=== PATIENT | female | born 1990 | race Hispanic/Latino ===

== ENCOUNTER 2020-04-26 13:46 | Emergency (ER) | payer OTHER, SELFPAY ==
--- OUTSIDE RECORDS SUMMARY | 2020-04-26 13:48 | XMS REPORT | Continuity of Care Document ---
:1990 Author Organization [facility] t Address [address] [place] [address] Care Team Providers Name Role Phone Abel Jimenez Attending Clinician Payers Payer Name Policy Type Policy Number Effective Date Expiration Date S ource Problems This patient has no known problems. Allergies, Adverse Reactions, Alerts Allergy Allergy Status Severity Reaction(s) Onset Inactive Treating Comm ents Source Name Type Date Date Clinician No Known DA Active [facility] Allergie 05-23 Clear s 00:00: Barrios 00 [facility] Medications This patient has no known medications. Procedures This patient has no known procedures. Encounters Start End Encounter Admission Attending Care Care Encounter Source Date/Time Date/Time Type Type Clinicians Facility Department ID 2019-06-07 2019-06-07 Telephone Debra WAGLO [id number] 00:00:00 00:00:00 Blanca Roman MANGLE OPERATOR GARMENTS [id number] [facility] [id number] MATERNAL [id number] & CHILD [address] [place] [address] Results Test Description Test Time Test Comments Results Result Comments Source COMPREHENSIVE METABOLIC PANEL 2018-05-23 16:25:00 Test Item Value Reference Range Interpretation Comme nts SODIUM (test code = NA) 138 mmol/L 134-147 N POTASSIUM (test code = K) 4.2 mmol/L 3.4-5.0 N CHLORIDE (test code = CL) 106 mmol/L 100-108 N CARBON DIOXIDE (test code = CO2) 27 mmol/L 21-32 N ANION GAP (test code = GAP) 5.0 GAP calc 4.0-15.0 N GLUCOSE (test code = GLU) 84 MG/DL 70-110 N BLOOD UREA NITROGEN (test code = BUN) 14 MG/DL 7-18 N GLOMERULAR FILTRATION RATE (test code = GFR) >=60 max estimate estG FR >60 CREATININE (test code = CREAT) 0.5 MG/DL 0.6-1.0 L TOTAL PROTEIN (test code = PROT) 7.6 G/DL 6.4-8.2 N ALBUMIN (test code = ALB) 3.9 G/DL 3.4-5.0 N GLOBULIN (test code = GLOB) 3.7 GM/dL ALBUMIN/GLOBULIN RATIO (test code = A/G) 1.1 RATIO 1.2-2.2 L CALCIUM (test code = CA) 8.1 MG/DL 8.5-10.1 L BILIRUBIN TOTAL (test code = BILT) 0.40 MG/DL 0.2-1.2 N SGOT/AST (test code = AST) 16 Unit/L 15-37 N SGPT/ALT (test code = ALT) 26 Unit/L 12-78 N ALKALINE PHOSPHATASE TOTAL (test code = ALKP) 106 Unit/L 45-117 N COMPREHENSIVE METABOLIC [id number] 16:18:00 Test Item Value Reference Range Interpretation Comments SODIUM (test code = NA) 138 mmol/L 134-147 N POTASSIUM (test code = K) 4.2 mmol/L 3.4-5.0 N CHLORIDE (test code = CL) 106 mmol/L 100-108 N CARBON DIOXIDE (test code = CO2) 27 mmol/L 21-32 N ANION GAP (test code = GAP) 5.0 GAP calc 4.0-15.0 N GLUCOSE (test code = GLU) 84 MG/DL 70-110 N BLOOD UREA NITROGEN (test code = 14 MG/DL 7-18 N BUN) GLOMERULAR FILTRATION RATE (test estGFR >60 code = GFR) CREATININE (test code = CREAT) MG/DL 0.6-1.0 TOTAL PROTEIN (test code = PROT) G/DL 6.4-8.2 ALBUMIN (test code = ALB) G/DL 3.4-5.0 GLOBULIN (test code = GLOB) GM/dL ALBUMIN/GLOBULIN RATIO (test RATIO 1.2-2.2 code = A/G) CALCIUM (test code = CA) 8.1 MG/DL 8.5-10.1 L BILIRUBIN TOTAL (test code = MG/DL 0.2-1.2 BILT) SGOT/AST (test code = AST) Unit/L 15-37 SGPT/ALT (test code = ALT) Unit/L 12-78 ALKALINE PHOSPHATASE TOTAL (test Unit/L 45-117 code = ALKP) CBC W/AUTO [id number] 16:02:00 Test Item Value Reference Range Interpretation Comments WHITE BLOOD CELL (test code = 5.9 K/mm3 3.5-11.0 N WBC) RED BLOOD CELL (test code = RBC) 4.54 M/mm3 4.70-6.10 L HEMOGLOBIN (test code = HGB) 12.6 G/DL 10.4-14.9 N HEMATOCRIT (test code = HCT) 37.9 % 31.5-44.1 N MEAN CELL VOLUME (test code = 83.5 Fl 84.5-98.6 L MCV) MEAN CELL HGB (test code = MCH) 27.8 pg 27.0-34.2 N MEAN CELL HGB CONCETRATION (test 33.2 G/DL 31.5-34.0 N code = MCHC) RED CELL DISTRIBUTION WIDTH (test 13.9 SD 11.5-14.5 N code = RDW) PLATELET COUNT (test code = PLT) 197.0 K/mm3 150-450 N MEAN PLATELET VOLUME (test code = 9.90 fL 7.0-10.5 N MPV) NEUTROPHIL % (test code = NT%) 52.9 % 40-76 N LYMPHOCYTE % (test code = LY%) 33.6 % 20.5-51.1 N MONOCYTE % (test code = MO%) 7.3 % 1.7-9.3 N EOSINOPHIL % (test code = EO%) 5.9 % 0.0-6.0 N BASOPHIL % (test code = BA%) 0.3 % 0.0-2.0 N NEUTROPHIL # (test code = NT#) 3.11 K/mm3 1.8-7.6 N LYMPHOCYTE # (test code = LY#) 2.0 K/mm3 0.6-3.2 N MONOCYTE # (test code = MO#) 0.4 K/mm3 0.3-1.1 N EOSINOPHIL # (test code = EO#) 0.4 K/mm3 0.0-0.4 N BASOPHIL # (test code = BA#) 0.0 K/mm3 0.0-0.1 N MANUAL DIFF REQUIRED (test code = NO DIFF/SCN CRITERIA MDIFF) - XR CHEST 2 [id number] 13:50:00 Name: TOM CRESPO [facility] : 1990 Age/S: 28 / F [place] Unit #: [id number] Loc: [place] [address] Phys: Perico Watkins MD Acct: [id number] Dis Date: Status: PRE ER PHONE #: [phone] Exam Date: 05/23/2018 1340 FAX #: Reason: cough fever EXAMS: CPT: [id number] XR CHEST 2 V 05108 Fluoro Time: DAP (Gy m2): Air Kerma (mGy): Site ID: [id number] HISTORY: Cough, fever FINDINGS: Patchy right middle lobe pneumonia. Left lung is clear. The heart and pulmonary vasculature is normal. Osseous structures are unrem arkable. IMPRESSION: Patchy right middle lobe pneumonia at 1350 Reported andsigned by: Barbara Morocho M.D. CC: Perico Watkins MD PAGE 1 Signed Report Name: TOM CRESPO [facility] : 1990 Age/S: 28 / F [place] Unit #: [id number] Loc: [place] [address] Phys: Perico Watkins MD Acct: [id number] Dis Date: Status: PRE ER PHONE #: [phone] Exam Date: 05/23/2018 1343 FAX #: Reason: cough fever EXAMS: CPT: [id number] XR CHEST 2 V 60353 Fluoro Time: DAP (Gy m2): Air Kerma (mGy): <Continued> Technologist: Renetta Kahn RT(R) Trnscb Date/Time: 05/23/2018 (3642) [email or web address] Orig Print D/T: S: 05/23/2018 (2633) PAGE 2 Signed Report
[2020-04-26 15:23] LABS: Urine Blood NEGATIVE (NEG); Urine Glucose NEGATIVE (NEG); Urine Protein NEGATIVE (NEG); Urine Specific Gravity >1.030 (1.005-1.030); Urine pH 5.5 (5.0-7.0)
[2020-04-26] MEDS ORDERED: KETOROLAC 30 MG/ML INJ ONE (15:25)
[2020-04-26] MEDS ORDERED: METHYLPREDNISOLONE 125 MG INJ ONE (15:25)
[2020-04-26 15:31] LABS: Basophils % 0.6 % (0-1.3); Hematocrit 38.9 % (36.0-45.0); Lymphocytes % 29.6 % (15.3-44.8); MPV 8.7 fL (7.6-11.3); RBC Red Blood Cell Count 4.79 M/uL (3.86-4.86)
--- NOTE | 2020-04-26 15:38 | RAD REPORT ---
EXAM DESCRIPTION: RAD - Chest Single View - 04/26/2020 3:30 pm CLINICAL HISTORY: CHEST PAIN Chest pain. COMPARISON: CHEST PA AND LAT 2 VIEW dated 09/08/2007 FINDINGS: Portable technique limits examination quality. The lungs are grossly clear. The heart is normal in size. No displaced fractures. IMPRESSION: No acute intrathoracic process suspected.
[2020-04-26 15:42] LABS: Potassium 3.9 mmol/L (3.5-5.1)
[2020-04-26] MEDS ORDERED: ONDANSETRON 4 MG/2 ML VIAL ONE (16:57)
[2020-04-26] MEDS ORDERED: MORPHINE 4 MG/ML SYR ONE (16:57)
--- NOTE | 2020-04-26 17:30 | RAD REPORT ---
EXAM DESCRIPTION: US - Abdomen Exam Limited - 04/26/2020 5:05 pm CLINICAL HISTORY: RUQ pain;Abd pain COMPARISON: No comparisons FINDINGS: The gallbladder demonstrates several shadowing gallstones. Gallbladder wall is mildly thic kened. No pericholecystic fluid seen. The common bile duct is normal measuring 3 mm. The liver demonstrates no findings of intrahepatic biliary dilatation. IMPRESSION: Cholelithiasis. Mild thickening of the gallbladder wall could indicate early cholecysti tis. Suggest correlation with HIDA scan if clinically indicated.
--- NOTE | 2020-04-26 17:32 | ER ---
Nurse's Notes [facility] Name: Leticia Hester Age: 30 yrs Sex: Female : 1990 Arrival Date: 04/26/2020 Time: 13:48 Bed 16 Private MD: Diagnosis: Abdominal and pelvic pain;Cholelithiasis Presentation: 04/26 14:02 Chief complaint: Patient states: Mid chest pains off/on since Wednesday. Pain radiates ll1 into R back with deep breathing. No cough/fever. Nausea for 3 days. Coronavirus screen: Client denies travel out of the [place] in the last 14 days. At this time, the client does not indicate any symptoms associated with coronavirus-19. Ebola Screen: Patient denies travel to an Ebola-affected area in the 21 days before illness onset. Initial Sepsis Screen: Does the patient meet any 2 criteria? No. Patient's initial sepsis screen is negative. Does the patient have a suspected source of infection? Yes: Other: chest pain. Risk Assessment: Do you want to hurt yourself or someone else? Patient reports no desire to harm self or others. Onset of symptoms was April 24, 2020. 14:02 Method Of Arrival: Ambulatory ll1 14:02 Acuity: JACOB 3 ll1 JUNCTION MAKER: 15:00 LMP 04/16/2020 aa5 Historical: - Allergies: 14:05 Latex, Natural Rubber; ll1 - PSHx: 14:05 ear sx R eardrum; breast reduction; tummy tuck; ll1 - Immunization history:: Flu vaccine is not up to date. - Social history:: Smoking status: Patient denies any tobacco usage or history of. Screenin:40 Abuse screen: Denies threats or abuse. Nutritional screening: No deficits noted. aa5 Tuberculosis screening: No symptoms or risk factors identified. Fall Risk None identified. Assessment: 14:40 General: Appears uncomfortable, Behavior is calm, cooperative. Pain: Complains of pain aa5 in xyphoid area and mid-sternal area Pain radiates to right lateral aspect of chest Pain currently is 7 out of 10 on a pain scale. Quality of pain is described as sharp, shooting, Pain began Wednesday Is episodic. Neuro: Level of Consciousness is awake, alert, obeys commands, Oriented to person, place, time, situation. Cardiovascular: Heart tones S1 S2 present Rhythm is regular. Respiratory: Airway is patent Respiratory effort is even, unlabored, Respiratory pattern is regular, symmetrical, Breath sounds are clear bilaterally. Denies cough, shortness of breath. GI: Abdomen is round non-distended, Bowel sounds present X 4 quads. Abd is soft and non tender X 4 quads. Reports nausea, Patient currently denies vomiting. : No signs and/or symptoms were reported regarding the genitourinary system. EENT: No signs and/or symptoms were reported regarding the EENT system. Derm: Skin is pink, warm \T\ dry. Musculoskeletal: Range of motion: intact in all extremities. 15:40 Reassessment: No changes from previously documented assessment. Patient and/or family ll1 updated on plan of care and expected duration. Pain level reassessed. 16:40 Reassessment: No changes from previously documented assessment. Patient and/or family ll1 updated on plan of care and expected duration. Pain level reassessed. 17:40 Reassessment: No changes from previously documented assessment. Patient and/or family ll1 updated on plan of care and expected duration. Pain level reassessed. Patient is alert, oriented x 3, equal unlabored respirations, skin warm/dry/pink. Vital Signs: 14:02 BP 121 / 96; Pulse 89; Resp 16; Temp 97.6; Pulse Ox 97% ; Weight 81.65 kg; Height 5 ft. ll1 7 in. (170.18 cm); Pain 6/10; 17:41 BP 95 / 69; Pulse 74; Resp 16; Pulse Ox 96% on R/A; ll1 17:47 BP 110 / 84; Pulse 72; Resp 16; Pulse Ox 96% on R/A; ll1 14:02 Body Mass Index 28.19 (81.65 kg, 170.18 cm) ll1 ED Course: 13:48 Patient arrived in ED. as 14:02 Arm band placed on. ll1 14:04 Triage completed. ll1 14:10 Chinmay Valencia MD is Attending Physician. kdr 14:35 Viviana Kurtz, THERESA is Primary Nurse. aa5 14:40 Patient has correct armband on for positive identification. Placed in gown. Bed in low aa5 position. Call light in reach. Side rails up X2. athletic monitor on. Pulse ox on. NIBP on. 15:17 Initial lab(s) drawn, by me, sent to lab. Inserted saline lock: 20 gauge in left aa5 antecubital area, using aseptic technique. Blood collected. 15:17 No provider procedures requiring assistance completed. Patient maintains SpO2 aa5 saturation greater than 95% on room air. 15:18 Primary Nurse role handed off by Viviana Kurtz, RN ll1 15:18 Sai Hastings, RN is Primary Nurse. ll1 15:30 Chest Single View XRAY In Process Unspecified. EDMS 15:31 EKG done, by ED staff, reviewed by Chinmay Valencia MD. em1 17:05 US Abdomen Limited In Process Unspecified. EDMS 17:31 Jordan Valdes MD is Referral Physician. kdr 17:45 IV discontinued, intact, bleeding controlled, No redness/swelling at site. Pressure ll1 dressing applied. Administered Medications: 15:20 Drug: SOLU-Medrol 125 mg Route: IVP; Site: left antecubital; aa5 18:46 Follow up: Response: No adverse reaction; RASS: Alert and Calm (0) ll1 15:20 Drug: TORadol - Ketorolac 15 mg Route: IVP; Site: left antecubital; aa5 18:46 Follow up: Response: No adverse reaction; Pain is decreased; RASS: Alert and Calm (0) ll1 16:48 Drug: Zofran (Ondansetron) 4 mg Route: IVP; Site: right antecubital; ll1 18:47 Follow up: Response: No adverse reaction; Nausea is decreased; RASS: Alert and Calm (0) ll1 16:48 Drug: morphine 4 mg {Note: rass 0.} Route: IVP; Site: left antecubital; ll1 18:47 Follow up: Response: No adverse reaction; Pain is decreased; RASS: Alert and Calm (0) ll1 Outcome: 17:31 Discharge ordered by . kdr 17:47 Patient left the ED. ll1 17:47 Discharged to home ambulatory. ll1 17:47 Condition: stable 17:47 Discharge instructions given to patient, Instructed on discharge instructions, follow up and referral plans. no drinking with medication, no driving heavy equipment, medication usage, Demonstrated understanding of instructions, follow-up care, medications, Prescriptions given X x 5 Signatures: Dispatcher [employer] Chinmay Hopper MD MD kdr Martinez, Amelia as Martinez, Eric em1 Viviana Kurtz RN RN aa5 Sai Hastings RN RN ll1
--- NOTE | 2020-04-26 17:32 | EDPHYS ---
Physician Documentation [facility] Name: Leticia Hester Age: 30 yrs Sex: Female : 1990 Arrival Date: 04/26/2020 Time: 13:48 Bed 16 Private MD: ED Physician Chinmay Valencia HPI: 04/26 17:23 This 30 yrs old Female presents to ER via Ambulatory with complaints of Chest kdr Pain. 17:23 The patient or guardian reports chest pain that is located primarily in the substernal kdr area, epigastric area, xyphoid area. The pain radiates to right back. Associated signs and symptoms: Pertinent positives: abdominal pain, nausea, Pertinent negatives: diaphoresis, dizziness, headache, lightheadedness, near syncope, palpitations, recent travel, shortness of breath. The chest pain is described as aching, dull, a pressure, sharp. Duration: The patient or guardian reports multiple episodes, that are intermittent, that wax and wane, with no pattern. Severity of pain: At its worst the pain was severe incapacitating a 9 / 10 in the emergency department the pain has improved mildly. The patient has not experienced similar symptoms in the past. The patient has not recently seen a physician. ORDER CLERK: 15:00 LMP 04/16/2020 aa5 Historical: - Allergies: 14:05 Latex, Natural Rubber; ll1 - PSHx: 14:05 ear sx R eardrum; breast reduction; tummy tuck; ll1 - Immunization history:: Flu vaccine is not up to date. - Social history:: Smoking status: Patient denies any tobacco usage or history of. ROS: 17:23 Constitutional: Negative for fever, chills, and weight loss, Eyes: Negative for injury, kdr pain, redness, and discharge, Neck: Negative for injury, pain, and swelling, Respiratory: Negative for shortness of breath, cough, wheezing, and pleuritic chest pain, Back: Negative for injury and pain, : Negative for injury, bleeding, discharge, and swelling, MS/Extremity: Negative for injury and deformity, Skin: Negative for injury, rash, and discoloration, Neuro: Negative for headache, weakness, numbness, tingling, and seizure activity. Psych: Negative for depression, anxiety, suicide ideation, homicidal ideation, and hallucinations, Allergy/Immunology: Negative for hives, rash, and allergies, Endocrine: Negative for neck swelling, polydipsia, polyuria, polyphagia, and marked weight changes, Hematologic/Lymphatic: Negative for swollen nodes, abnormal bleeding, and unusual bruising. 17:23 Cardiovascular: Positive for chest pain, with cough, with movement, of the xyphoid area. Exam: 17:23 Constitutional: This is a well developed, well nourished patient who is awake, alert, kdr and in no acute distress. Head/Face: Normocephalic, atraumatic. Eyes: Pupils equal round and reactive to light, extra-ocular motions intact. Lids and lashes normal. Conjunctiva and sclera are non-icteric and not injected. Cornea within normal limits. Periorbital areas with no swelling, redness, or edema. Neck: Trachea midline, no thyromegaly or masses palpated, and no cervical lymphadenopathy. Supple, full range of motion without nuchal rigidity, or vertebral point tenderness. No Meningismus. Chest/axilla: Normal chest wall appearance and motion. Nontender with no deformity. No lesions are appreciated. Cardiovascular: Regular rate and rhythm with a normal S1 and S2. No gallops, murmurs, or rubs. Normal PMI, no JVD. No pulse deficits. Respiratory: Lungs have equal breath sounds bilaterally, clear to auscultation and percussion. No rales, rhonchi or wheezes noted. No increased work of breathing, no retractions or nasal flaring. Back: No spinal tenderness. No costovertebral tenderness. Full range of motion. Skin: Warm, dry with normal turgor. Normal color with no rashes, no lesions, and no evidence of cellulitis. MS/ Extremity: Pulses equal, no cyanosis. Neurovascular intact. Full, normal range of motion. Neuro: Awake and alert, GCS 15, oriented to person, place, time, and situation. Cranial nerves II-XII grossly intact. Motor strength 5/5 in all extremities. Sensory grossly intact. Cerebellar exam normal. Normal gait. Psych: Awake, alert, with orientation to person, place and time. Behavior, mood, and affect are within normal limits. 17:23 Abdomen/GI: Inspection: abdomen appears normal, Bowel sounds: active, all quadrants, Palpation: soft, mild abdominal tenderness, in the epigastric area and right upper quadrant, mass, is not appreciated, rebound tenderness, is not appreciated, voluntary guarding, is not appreciated. Vital Signs: 14:02 BP 121 / 96; Pulse 89; Resp 16; Temp 97.6; Pulse Ox 97% ; Weight 81.65 kg; Height 5 ft. ll1 7 in. (170.18 cm); Pain 6/10; 17:41 BP 95 / 69; Pulse 74; Resp 16; Pulse Ox 96% on R/A; ll1 17:47 BP 110 / 84; Pulse 72; Resp 16; Pulse Ox 96% on R/A; ll1 14:02 Body Mass Index 28.19 (81.65 kg, 170.18 cm) ll1 MDM: 17:23 Data reviewed: vital signs, nurses notes, lab test result(s), EKG, radiologic studies. kdr Counseling: I had a detailed discussion with the patient and/or guardian regarding: the historical points, exam findings, and any diagnostic results supporting the discharge/admit diagnosis, lab results, radiology results, the need for outpatient follow up. 17:31 [facility] medically screened. [facility] 04/26 15:07 Order name: CBC with Diff; Complete Time: 16:33 aa5 04/26 15:07 Order name: Basic Metabolic Panel; Complete Time: 16:33 aa5 04/26 15:07 Order name: Chest Single View XRAY; Complete Time: 16:33 aa5 04/26 15:09 Order name: Urine Dipstick--Ancillary (enter results); Complete Time: 16:33 04/26 15:09 Order name: Urine --Ancillary (enter results); Complete Time: 16:33 04/26 16:41 Order name: US Abdomen Limited kdr 04/26 15:07 Order name: Urine Dipstick-Ancillary (obtain specimen); Complete Time: 15:22 aa5 04/26 15:07 Order name: Urine Test (obtain specimen); Complete Time: 15:22 aa5 04/26 15:08 Order name: IV; Complete Time: 15:17 aa5 04/26 15:08 Order name: EKG - Nurse/Tech; Complete Time: 15:18 aa5 Administered Medications: 15:20 Drug: SOLU-Medrol 125 mg Route: IVP; Site: left antecubital; aa5 18:46 Follow up: Response: No adverse reaction; RASS: Alert and Calm (0) 1 15:20 Drug: TORadol - Ketorolac 15 mg Route: IVP; Site: left antecubital; aa5 18:46 Follow up: Response: No adverse reaction; Pain is decreased; RASS: Alert and Calm (0) ll1 16:48 Drug: Zofran (Ondansetron) 4 mg Route: IVP; Site: right antecubital; 1 18:47 Follow up: Response: No adverse reaction; Nausea is decreased; RASS: Alert and Calm (0) ll1 16:48 Drug: morphine 4 mg {Note: rass 0.} Route: IVP; Site: left antecubital; 1 18:47 Follow up: Response: No adverse reaction; Pain is decreased; RASS: Alert and Calm (0) 1 Disposition: 04/26/20 17:31 Discharged to Home. Impression: Abdominal and pelvic pain, Cholelithiasis. - Condition is Stable. - Discharge Instructions: Abdominal Pain, Adult, [id number]. - Prescriptions for Augmentin 500- 125 mg Oral Tablet - take 1 tablet by ORAL route every 8 hours for 7 days; 21 tablet. Bentyl 20 mg Oral Tablet - take 1 tablet by ORAL route every 6 hours As needed; 20 tablet. Pepcid 20 mg Oral Tablet - take 1 tablet by ORAL route every 12 hours for 5 days; 10 tablet. Zofran 4 mg Oral Tablet - take 1 tablet by ORAL route every 4-6 hours As needed; 12 tablet. Tramadol 50 mg Oral Tablet - take 1 tablet by ORAL route every 8 hours as needed; 12 tablet. - Medication Reconciliation Form, Thank You Letter, Antibiotic Education, Prescription Opioid Use form. - Follow up: Jordan Valdes MD; When: 2 - 3 days; Reason: If symptoms return, Further diagnostic work-up, Recheck today's complaints, Continuance of care, Re-evaluation by your physician. - Problem is new. - Symptoms have improved. Signatures: Dispatcher [employer] EDMS Chinmay Valencia MD MD kdr Calderon, Audri, RN RN aa5 Sai Hastings RN RN ll1 Corrections: (The following items were deleted from the chart) 17:47 17:31 04/26/2020 17:31 Discharged to Home. Impression: Abdominal and pelvic pain; ll1 Cholelithiasis. Condition is Stable. Forms are Medication Reconciliation Form, Thank You Letter, Antibiotic Education, Prescription Opioid Use. Follow up: Jordan Valdes; When: 2 - 3 days; Reason: If symptoms return, Further diagnostic work-up, Recheck today's complaints, Continuance of care, Re-evaluation by your physician. Problem is new. Symptoms have improved. kdr
[2020-04-26 17:52] VITALS: TEMP 97.6
[2020-04-26 17:53] VITALS: BP 95/69; O2SAT 96
== END 2020-04-26 17:47 | disposition home or self-care (01) ==
LOC: ER 13:46
DX: K80.20 Calculus of gallbladder without cholecystitis without obstruction (principal); Z91.040 Latex allergy status; Z91.048 Other nonmedicinal substance allergy status
CPT/HCPCS: 93005; 85025; 80048; 36415; 81025; 81003; 71045; 76705; 99285; J2930; J2405

== ENCOUNTER 2020-05-01 08:36 | Day surgery (SDC) | payer OTHER ==
[2020-04-30 11:25] LABS: Specific Gravity 1.025 (1.005-1.030)
[2020-04-30 11:43] LABS: ALT/SGPT 17 U/L (12-78); AST/SGOT 14 U/L (15-37); Albumin 4.2 g/dL (3.4-5.0); Alkaline Phosphatase 85 U/L (45-117); Amylase 59 U/L (25-115); Bilirubin Direct < 0.1 mg/dL (0-0.2); Bilirubin Total 0.4 mg/dL (0.2-1.0); Protein, Total 7.9 g/dL (6.4-8.2)
--- OUTSIDE RECORDS SUMMARY | 2020-05-01 08:41 | XMS REPORT | Continuity of Care Document ---
:1990 Author Organization [facility] t Address [address] [place] [address] Care Team Providers Name Role Phone Abel Jimenez Attending Clinician Payers Payer Name Policy Type Policy Number Effective Date Expiration Date S ource Problems This patient has no known problems. Allergies, Adverse Reactions, Alerts Allergy Allergy Status Severity Reaction(s) Onset Inactive Treating Comm ents Source Name Type Date Date Clinician No Known DA Active [facility] Allergie 05-23 Clear s 00:00: Barrios [address] [facility] Medications This patient has no known medications. Procedures This patient has no known procedures. Encounters Start End Encounter Admission Attending Care Care Encounter Source Date/Time Date/Time Type Type Clinicians Facility Department ID 2019-06-07 2019-06-07 Telephone RobbyTEENA mcintyre [id number] 00:00:00 00:00:00 Blanca Roman SENIOR ASSET MANAGER [id number] [facility] [id number] MATERNAL [id number] & CHILD [address] [place] [address] Results Test Description Test Time Test Comments [...] ALKP) 106 Unit/L 45-117 N COMPREHENSIVE METABOLIC [id number] 16:18:00 Test Item Value Reference Range Interpretation [...] Unit/L 45-117 code = ALKP) CBC W/AUTO [id number] 16:02:00 Test Item Value Reference Range Interpretation [...] DIFF/SCN CRITERIA MDIFF) - XR CHEST 2 [id number] 13:50:00 Name: TOM CRESPO [facility] : 1990 Age/S: 28 / F [id number] Unit #: [id number] Loc: [place] [address] Phys: Perico Watkins MD Acct: [id number] Dis Date: Status: PRE ER PHONE #: [phone] Exam Date: 05/23/2018 1345 FAX #: Reason: cough fever EXAMS: CPT: [id number] XR CHEST 2 V 59351 Fluoro Time: DAP (Gy m2): Air Kerma (mGy): Site ID: [id number] HISTORY: Cough, fever FINDINGS: Patchy right middle lobe pneumonia. Left lung is clear. The heart and pulmonary vasculature is normal. Osseous structures are unrem arkable. IMPRESSION: Patchy right middle lobe pneumonia at 1350 Reported andsigned by: Barbara Morocho M.D. CC: Perico Watkins MD PAGE 1 Signed Report Name: TOM CRESPO [facility] : 1990 Age/S: 28 / F [id number] Unit #: [id number] Loc: [place] [address] Phys: Perico Watkins MD Acct: [id number] Dis Date: Status: PRE ER PHONE #: [phone] Exam Date: 05/23/2018 1345 FAX #: Reason: cough fever EXAMS: CPT: [id number] XR CHEST 2 V 24750 Fluoro Time: DAP (Gy m2): Air Kerma (mGy): <Continued> Technologist: RT Joan(R) Trnscb Date/Time: 05/23/2018 (1679) [id number] Orig Print D/T: S: 05/23/2018 (3378) PAGE 2 Signed Report
[2020-05-01] MEDS ORDERED: Ringers Lactate 1,000 ML IV ONE ×2 (09:04→10:47)
[2020-05-01] MEDS ORDERED: CEFOXITIN/SWI 1gm 1 GM/10 ML SYR ONE (09:04)
[2020-05-01] MEDS ORDERED: propofoL 200 MG/20 ML VIAL IV ONE (09:49)
[2020-05-01] MEDS ORDERED: GLYCOPYRROLATE 0.2 MG/ML SYR ONE (09:50)
[2020-05-01] MEDS ORDERED: MIDAZOLAM HCL 2 MG/2 ML INJ ONE (09:50)
[2020-05-01] MEDS ORDERED: FENTANYL CITR 250 MCG/5 ML ONE (09:51)
[2020-05-01] MEDS ORDERED: LIDOCAINE 2% MPF 5 ML VIAL ONE (09:51)
[2020-05-01] MEDS ORDERED: ONDANSETRON 4 MG/2 ML VIAL ONE ×3 (09:55→11:34)
[2020-05-01] MEDS ORDERED: ROCURONIUM 50 MG/5 ML VIAL IV ONE (09:56)
[2020-05-01] MEDS ORDERED: dexAMETHasone 10 MG/ML VIAL ONE (10:16)
[2020-05-01] MEDS ORDERED: NS 0.9% VIAL 10 ML ONE (10:21)
[2020-05-01] MEDS ORDERED: EPHEDRINE SULF 50 MG/ML VIAL ONE (10:46)
[2020-05-01] MEDS: HYDROMORPHONE HCL 1 MG/ML INJ ONE ×4 (11:21→11:49)
[2020-05-01] MEDS ORDERED: KETOROLAC 30 MG/ML INJ ONE (11:47)
--- NOTE | 2020-05-01 12:11 | OP ---
Date of Procedure: 05/01/2020 Surgeon: Danny Goins MD Fur Pointer: WILLI Amaya. Preoperative Diagnoses: Chronic cholecystitis and cholelithiasis. Postoperative Diagnoses: Chronic cholecystitis and cholelithiasis. Procedure: Laparoscopic cholecystectomy. Estimated Blood Loss: Minimal. Specimen: Gallbladder. Findings: As above. Anesthesia: General. Complications: None. Condition: The patient tolerated the procedure in stable condition and taken to Recovery in good gen eral condition. Procedure In Detail: The patient was brought to the OR and placed in supine position. General anest hesia was begun. The patient was prepped and draped in the usual sterile fashion. Marcaine 0.5% was infiltrated locally. A 15-blade was used to make a 1 cm infraumbilical midline incision. Subcutane ous tissue divided. Fascia was identified and divided. #1 Vicryl stay suture was placed. Peritonea l cavity was entered with sharp and blunt dissection. 12 mm trocar was placed into the peritoneal ca vity under direct vision. Pneumoperitoneum was established. Three 5 mm trocars placed, under direct vision, 1 in the epigastrium just to the right of midline and 2 in the right subcostal region. Lapa roscopy revealed chronic inflammation of the gallbladder with some adhesions. Fundus was retracted s uperiorly. Adhesions taken down with sharp and blunt dissection. Bleeding controlled with cautery. Infundibulum was identified and retracted inferolaterally. Cystic duct and cystic artery were clear ly identified with blunt dissection. Clips placed. Both structures were divided. Cautery used to r emove the gallbladder from the liver bed. Bleeding on the liver bed was controlled with cautery. Ga llbladder was retrieved through the umbilicus via an EndoCatch bag. Then, right upper quadrant was i rrigated, effluent was clear. No evidence of bleeding or bile leakage appreciated. Subsequently, al l trocars were removed under direct vision. Stay sutures were tied to each other and reapproximated the fascial defect. Subcutaneous wounds were irrigated. Bleeding was controlled with cautery. 3-0 chromic was used to approximate the subcutaneous tissue and close the skin. Sterile dressing was tracey lied. The patient was awakened and taken to Recovery in good general condition. Discharge Note: The patient will go to Day Surgery and home when stable. Disposition: Home. Condition: Stable. Discharge Instructions: Resume home medications and diet. Activity as tolerated. No heavy lifting. Remove outer dressing in 2 days. Shower. Keep wound clean and dry. Keep Steri-Strips on at all t imes. Follow up in my office in a week, call for appointment. Tylenol No. 3 one tablet p.o. q.4 p.r .n. pain. Incentive spirometry has ordered. /MODL Voice ID: [id number] Report ID: [id number]
[2020-05-01] MEDS ORDERED: HYDROCODONE/APAP 7.5/325 MG TAB ONE (12:42)
[2020-05-01 12:59] VITALS: BP 108/85; TEMP 97; O2SAT 99
== END 2020-05-01 13:01 | disposition home or self-care (01) ==
LOC: OR 08:36
PROVIDERS: ATTEND Surgery
PROC: 0FT44ZZ Resection of Gallbladder, Percutaneous Endoscopic Approach (ICD-10-PCS; principal; 2020-05-01 10:00)
DX: K80.10 Calculus of gallbladder with chronic cholecystitis without obstruction (principal); K21.9 Gastro-esophageal reflux disease without esophagitis; Z91.040 Latex allergy status; Z20.828 Contact with and (suspected) exposure to other viral communicable diseases
CPT/HCPCS: 36415; 82150; 81025; 80076; 88304; 47562; J2704; J2250; J3010; J1100; J1170 ×2; J7120 ×2; J2405 ×3; U0002

== ENCOUNTER 2020-05-07 12:50 | Emergency (ER) | payer OTHER ==
--- OUTSIDE RECORDS SUMMARY | 2020-05-07 12:52 | XMS REPORT | Continuity of Care Document ---
:1990 Author Organization [facility] t Address [address] [place] [address] Care Team Providers Name Role Phone Abel Jimenez Attending Clinician Payers Payer Name Policy Type Policy Number Effective Date Expiration Date S ource Problems This patient has no known problems. Allergies, Adverse Reactions, Alerts Allergy Allergy Status Severity Reaction(s) Onset Inactive Treating Comm ents Source Name Type Date Date Clinician No Known DA Active [facility] Allergie 05-23 Clear s 00:00: Barrios [address] [facility] Medications This patient has no known medications. Procedures This patient has no known procedures. Encounters Start End Encounter Admission Attending Care Care Encounter Source Date/Time Date/Time Type Type Clinicians Facility Department ID 2019-06-07 2019-06-07 Telephone TEENA Richardson [id number] 00:00:00 00:00:00 Blanca Roman FOR[facility]ING [employer]TER UP [id number] [facility] [id number] MATERNAL [id number] & CHILD [address] [place] [address] Results Test Description Test Time Test Comments [...] ALKP) 106 Unit/L 45-117 N COMPREHENSIVE METABOLIC [id number] 16:18:00 Test Item Value Reference Range Interpretation [...] Unit/L 45-117 code = ALKP) CBC W/AUTO [id number] 16:02:00 Test Item Value Reference Range Interpretation [...] DIFF/SCN CRITERIA MDIFF) - XR CHEST 2 [id number] 13:50:00 Name: TOM CRESPO [facility] : 1990 Age/S: 28 / F [id number] Unit #: [id number] Loc: [place] [address] Phys: Perico Watkins MD Acct: [id number] Dis Date: Status: PRE ER PHONE #: [phone] Exam Date: 05/23/2018 1345 FAX #: Reason: cough fever EXAMS: CPT: [id number] XR CHEST 2 V 81971 Fluoro Time: DAP (Gy m2): Air Kerma (mGy): Site ID: [id number] HISTORY: Cough, fever FINDINGS: Patchy right middle lobe pneumonia. Left lung is clear. The heart and pulmonary vasculature is normal. Osseous structures are unrem arkable. IMPRESSION: Patchy right middle lobe pneumonia at 1350 Reported andsigned by: Barbara Morocho M.D. CC: Perico Watkins MD PAGE 1 Signed Report Name: TOM CRESPO [facility] : 1990 Age/S: 28 / F [id number] Unit #: [id number] Loc: [place] [address] Phys: Perico Watkins MD Acct: [id number] Dis Date: Status: PRE ER PHONE #: [phone] Exam Date: 05/23/2018 1345 FAX #: Reason: cough fever EXAMS: CPT: [id number] XR CHEST 2 V 24763 Fluoro Time: DAP (Gy m2): Air Kerma (mGy): <Continued> Technologist: RT Joan(R) Trnscb Date/Time: 05/23/2018 (6737) [id number] Orig Print D/T: S: 05/23/2018 (7526) PAGE 2 Signed Report
[2020-05-07 14:08] LABS: Absolute Lymphocytes (CBC) 1.7 K/uL (0.7-4.9); Basophils % 0.8 % (0-1.3); Hematocrit 37.3 % (36.0-45.0); Lymphocytes % 22.5 % (15.3-44.8); MPV 8.8 fL (7.6-11.3); RBC Red Blood Cell Count 4.61 M/uL (3.86-4.86)
[2020-05-07] MEDS ORDERED: NA CHLORIDE 0.9% 1,000 ML ONE ×2 (14:09→15:26)
[2020-05-07] MEDS ORDERED: FAMOTIDINE 20 MG/2 ML VIAL IV ONE (14:09)
[2020-05-07] MEDS ORDERED: MORPHINE 4 MG/ML SYR ONE ×2 (14:09→15:26)
[2020-05-07] MEDS ORDERED: ONDANSETRON 4 MG/2 ML VIAL ONE ×2 (14:09→15:26)
[2020-05-07 14:27] LABS: ALT/SGPT 54 U/L (12-78); AST/SGOT 25 U/L (15-37); Albumin 3.8 g/dL (3.4-5.0); Alkaline Phosphatase 106 U/L (45-117); BUN Blood Urea Nitrogen 13 mg/dL (7-18); Bicarbonate 29 mmol/L (21-32); Bilirubin Direct 0.1 mg/dL (0-0.2); Bilirubin Total 0.6 mg/dL (0.2-1.0); Glucose Level 81 mg/dL (74-106); Lipase 101 U/L (73-393); Potassium 3.8 mmol/L (3.5-5.1); Protein, Total 7.5 g/dL (6.4-8.2); Sodium Level 139 mmol/L (136-145)
[2020-05-07 14:29] LABS: Urine Blood NEGATIVE (NEG); Urine Glucose NEGATIVE (NEG); Urine Protein NEGATIVE (NEG); Urine Specific Gravity >1.030 (1.005-1.030)
--- NOTE | 2020-05-07 14:35 | RAD REPORT ---
EXAM DESCRIPTION: CT - Chest For Pe Angio - 05/07/2020 2:26 pm CLINICAL HISTORY: Chest pain;PE COMPARISON: No comparisons TECHNIQUE: Dynamically enhanced 3 mm thick images of the chest were obtained during administration o f approximately 150mL Isovue 370 IV contrast. Coronal and oblique MIP reconstruction images were gene rated and reviewed. Exam utilizes a protocol to evaluate the pulmonary arterial tree. All CT scans are performed using dose optimization technique as appropriate and may include automated exposure control or mA/KV adjustment according to patient size. FINDINGS: No pulmonary emboli are identified. The aorta as imaged shows no acute or suspicious finding. No pericardial thickening or effusion. No infiltrate or mass in the lung parenchyma. No pleural effusion or pleural thickening. No mediastinal or hilar suspicious masses. No chest wall masses or abnormal axillary lymphadenopathy. IMPRESSION: No pulmonary emboli identified. No other significant or suspicious findings.
--- NOTE | 2020-05-07 15:11 | RAD REPORT ---
EXAM DESCRIPTION: CT - Abdomen Pelvis W Contrast - 05/07/2020 2:27 pm CLINICAL HISTORY: Abd pain;Abdominal distention, cholecystectomy 1 week earlier COMPARISON: Abdomen Pelvis W Contrast dated 10/12/2016; Chest For Pe Angio dated 05/07/2020 TECHNIQUE: Biphasic, helical CT imaging of the abdomen and pelvis was performed following 100 ml non -ionic IV contrast. No oral contrast administered. All CT scans are performed using dose optimization technique as appropriate and may include automated exposure control or mA/KV adjustment according to patient size. FINDINGS: No suspicious findings in the lung bases. The liver, spleen, and pancreas show no suspicious findings. Gallbladder is absent. No biliary tree d ilatation. Minimal stranding present in the gallbladder fossa well within normal for a recent post ch olecystectomy patient. Symmetric renal function is seen with no hydronephrosis or suspicious renal mass. No pyelonephritis o r acute parenchymal process. No bladder abnormalities. No adrenal abnormalities. No dilated bowel loops or bowel wall thickening. No acute GI process identified. Uterus and ovaries s how no suspicious findings. No free air, free fluid or pneumatosis. No bulky lymphadenopathy or omen herve thickening seen. An approximately 2.5 centimeter area of soft tissue attenuation is seen in the m idline abdominal wall and subcutaneous fat at the umbilicus level. This is a typical site for trocar entrance and is not unexpected given the recent surgery. Patient also appears of undergone abdominal plasty and repair of a periumbilical hernia seen in 2017. It is unknown if this was performed prior t o or as part of the cholecystectomy surgery. No suspicious bony findings. IMPRESSION: Trace amount of stranding in the gallbladder fossa well within normal limits for a recen t cholecystectomy. Soft tissue opacification in the subcutaneous fat and abdominal wall at the umbilicus presumably the laparoscope entry site. This is within normal limits for the recent surgery. No abscess, abnormal fluid collection, free air or other surgically emergent finding. Abdominoplasty changes are seen in the abdominal wall.
--- NOTE | 2020-05-07 15:28 | RAD REPORT ---
EXAM DESCRIPTION: RAD - Chest Single View - 05/07/2020 3:20 pm CLINICAL HISTORY: Abdominal distention;Chest pain, recent cholecystectomy COMPARISON: Portable April 26, 2020 TECHNIQUE: AP portable chest image was obtained 05/07/2020 3:20 pm . FINDINGS: Lungs are clear. Heart and vasculature are normal. No measurable pleural effusion and no p neumothorax. No acute bony abnormality seen. No acute aortic findings suspected. No free air under th e diaphragm. IMPRESSION: No acute cardiopulmonary process.
--- NOTE | 2020-05-07 15:54 | ER ---
Nurse's Notes [facility] Name: Leticia Hester Age: 30 yrs Sex: Female : 1990 Arrival Date: 05/07/2020 Time: 12:51 Bed 24 Private MD: Diagnosis: Abdominal tenderness;Pleurisy Presentation: 05/07 13:27 Chief complaint: Patient states: i had my gallbladder removed this past Wednesday, i am tw2 supposed to have a follow up appointment tomorrow and i am hurting on my right lower and upper abdomen and i have pain and a bulge below my belly button, i had a tummy tuck in August but every since this surgery that tummy tuck scar stings, and every time i go to stand up straight it hurts, i am very nauseous, the first time when i took a shower and took off the bandage i passed out and when i stood up yesterday i felt that really bad pain in the back of my head and a bautista of cold and my got me out of the shower and i didn't pass out yesterday, Dr. Goins said he would be calling up here to let them know but i dont know if he did. Coronavirus screen: nausea, Client presents with at least one sign or symptom that may indicate coronavirus-19. Standard/surgical mask placed on the client. Provider contacted for isolation considerations. Ebola Screen: Patient denies travel to an Ebola-affected area in the 21 days before illness onset. Initial Sepsis Screen: Does the patient meet any 2 criteria? No. Patient's initial sepsis screen is negative. Does the patient have a suspected source of infection? No. Patient's initial sepsis screen is negative. Risk Assessment: Do you want to hurt yourself or someone else? Patient reports no desire to harm self or others. Onset of symptoms was May 07, 2020. 13:27 Method Of Arrival: Wheelchair tw2 13:27 Acuity: JACOB 3 tw2 Triage Assessment: 13:32 General: Appears uncomfortable, Behavior is calm, cooperative, appropriate for age. tw2 Pain: Complains of pain in abdomen. 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 - Social history:: Smoking status: Patient denies any tobacco usage or history of. - Family history:: not pertinent. Screenin:40 Abuse screen: Denies threats or abuse. Denies injuries from another. Nutritional zb screening: No deficits noted. Tuberculosis screening: No symptoms or risk factors identified. Fall Risk None identified. Assessment: 13:40 General: Appears in no apparent distress. uncomfortable, Behavior is cooperative, zb anxious. Pain: Complains of pain in right upper quadrant and umbilical area and abdomen Pain currently is 9 out of 10 on a pain scale. Quality of pain is described as sharp, stabbing, Pain began 2 am this morning Is continuous, episodic. Neuro: Level of Consciousness is awake, alert, obeys commands, Oriented to person, place, time, situation. Cardiovascular: Capillary refill < 3 seconds in bilateral fingers Patient's skin is warm and dry. Respiratory: Airway is patent Respiratory effort is even, unlabored, shallow, Respiratory pattern is regular, symmetrical. GI: GI: Abdomen is flat, non-distended, bruised on umbilical area and right upper quadrant reddness and swelling noted to umbilical area Last BM was . Bowel sounds present X 4 quads. Abd is soft X 4 quads Abdomen is tender to palpation in umbilical area, suprapubic area, right upper quadrant and right lower quadrant Guarding noted in right upper quadrant Mass noted in umbilical area Reports lower abdominal pain, upper abdominal pain, nausea, Patient currently denies constipation, diarrhea. : No signs and/or symptoms were reported regarding the genitourinary system. EENT: No signs and/or symptoms were reported regarding the EENT system. Derm: Skin is intact, is healthy with good turgor, Skin is dry, Skin is normal, Skin temperature is warm. Musculoskeletal: Circulation, motion, and sensation intact. Capillary refill < 3 seconds, in bilateral fingers. Range of motion: intact in all extremities. 14:40 Reassessment: Patient appears in no apparent distress at this time. Patient and/or zb family updated on plan of care and expected duration. Pain level reassessed. Patient is alert, oriented x 3, equal unlabored respirations, skin warm/dry/pink. x-ray at bedside. patient pain hasn't decreased. ECP notified. Vital Signs: 13:27 BP 119 / 77; Pulse 84; Resp 17; Temp 97.8(TE); Pulse Ox 100% on R/A; Weight 83.01 kg tw2 (R); Height 5 ft. 7 in. (170.18 cm); Pain 9/10; 14:30 BP 129 / 92; Pulse 83; Resp 16; Pulse Ox 97% on R/A; zb 15:30 BP 128 / 95; Pulse 68; Resp 16; Pulse Ox 100% on R/A; zb 16:43 BP 109 / 82; Pulse 70; Resp 16; Pulse Ox 100% on R/A; zb 13:27 Body Mass Index 28.66 (83.01 kg, 170.18 cm) tw2 ED Course: 12:51 Patient arrived in ED. ag3 13:28 Minesh Agrawal MD is Attending Physician. daina 13:31 Triage completed. tw2 13:32 Arm band placed on. tw2 13:40 Misty Delgado, THERESA is Primary Nurse. zb 13:40 Fall risk band placed. Bed in low position. Call light in reach. Side rails up X 1. zb Pulse ox on. NIBP on. Door closed. Noise minimized. Warm blanket given. 13:58 Inserted saline lock: 20 gauge in right antecubital area, using aseptic technique. dh4 Blood collected. 14:14 Basic Metabolic Panel Sent. sv 14:14 Hepatic Function Sent. sv 14:14 Lipase Sent. sv 14:27 CT Chest For PE Angio In Process Unspecified. EDMS 14:27 CT Abd/Pelvis - IV Contrast Only In Process Unspecified. EDMS 15:20 Chest Single View XRAY In Process Unspecified. EDMS 15:53 Danny Goins MD is Referral Physician. daina 16:43 No provider procedures requiring assistance completed. IV discontinued, intact, zb bleeding controlled, No redness/swelling at site. Pressure dressing applied. Administered Medications: 13:55 Drug: NS 0.9% 1000 ml Route: IV; Rate: 1 bolus; Site: right antecubital; zb 15:00 Follow up: Response: No adverse reaction; IV Status: Completed infusion; IV Intake: zb 1000ml 13:55 Drug: Pepcid 20 mg Route: IVP; Site: right antecubital; zb 14:51 Follow up: Response: No adverse reaction zb 13:55 Drug: morphine 4 mg Route: IVP; Site: right antecubital; zb 14:20 Follow up: Response: No adverse reaction; Pain is unchanged, physician notified zb 13:55 Drug: Zofran (Ondansetron) 4 mg Route: IVP; Site: right antecubital; zb 14:50 Follow up: Response: No adverse reaction zb 15:15 Drug: morphine 4 mg Route: IVP; Site: right antecubital; zb 16:41 Follow up: Response: No adverse reaction zb 16:42 Follow up: Response: No adverse reaction; Marked relief of symptoms; Pain is decreased zb 15:15 Drug: Zofran (Ondansetron) 4 mg Route: IVP; Site: right antecubital; zb 16:42 Follow up: Response: No adverse reaction zb 15:15 Drug: NS 0.9% 1000 ml Route: IV; Rate: 1 bolus; Site: right antecubital; zb 16:42 Follow up: Response: No adverse reaction; IV Status: Completed infusion; IV Intake: zb 1000ml 16:11 Drug: Bactrim (160 mg-800 mg (DS) 1 tablet Route: PO; zb 16:41 Follow up: Response: No adverse reaction zb Intake: 15:00 IV: 1000ml; Total: 1000ml. zb 16:42 IV: 1000ml; Total: 2000ml. zb Outcome: 15:54 Discharge ordered by MD. lama 16:44 Discharged to home ambulatory. zb 16:44 Condition: stable 16:44 Discharge instructions given to patient, Instructed on discharge instructions, follow up and referral plans. medication usage, Demonstrated understanding of instructions, follow-up care, medications, Prescriptions given X 3. 16:46 Patient left the ED. zb Signatures: Dispatcher [employer] EDOlamide Silver RN RN sv Anderson, Corey, MD MD cha Wise, Tara, RN RN 2 Elaine Jaramillo [facility] Cash Boateng [facility] Misty Delgado RN RN zb Corrections: (The following items were deleted from the chart) 14:47 13:40 GI: filomena butt
--- NOTE | 2020-05-07 15:55 | EDPHYS ---
Physician Documentation [facility] Name: Leticia Hester Age: 30 yrs Sex: Female : 1990 Arrival Date: 05/07/2020 Time: 12:51 Bed 24 Private MD: DILLON Physician Minesh Agrawal HPI: 05/07 13:50 This 30 yrs old Female presents to ER via Wheelchair with complaints of Post daina Surgical Pain. 13:50 The patient has shortness of breath with light activity. Onset: The symptoms/episode daina began/occurred 5 day(s) ago. Duration: The symptoms are continuous, and are steadily getting worse. The patient's shortness of breath is aggravated by coughing, exertion, talking, walking, is alleviated by rest. The patient or guardian reports chest pain that is located primarily in the anterior chest wall, right. The patient presents with abdominal pain in the right upper quadrant, abdominal distention in the upper abdomen, in the lower abdomen. Onset: The symptoms/episode began/occurred 5 day(s) ago. The symptoms do not radiate. Associated signs and symptoms: Pertinent positives: non-productive cough. Severity of symptoms: At their worst the symptoms were moderate in the emergency department the symptoms are unchanged. 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 - Social history:: Smoking status: Patient denies any tobacco usage or history of. - Family history:: not pertinent. ROS: 13:50 Constitutional: Negative for fever, chills, and weight loss, Eyes: Negative for injury, daina pain, redness, and discharge, ENT: Negative for injury, pain, and discharge, Neck: Negative for injury, pain, and swelling, Cardiovascular: Negative for chest pain, palpitations, and edema, Back: Negative for injury and pain, : Negative for injury, bleeding, discharge, and swelling, MS/Extremity: Negative for injury and deformity, Skin: Negative for injury, rash, and discoloration, Neuro: Negative for headache, weakness, numbness, tingling, and seizure, Psych: Negative for depression, anxiety, suicide ideation, homicidal ideation, and hallucinations, Allergy/Immunology: Negative for hives, rash, and allergies, Endocrine: Negative for neck swelling, polydipsia, polyuria, polyphagia, and marked weight changes, Hematologic/Lymphatic: Negative for swollen nodes, abnormal bleeding, and unusual bruising. 13:50 Respiratory: Positive for cough, shortness of breath, at rest. 13:50 Abdomen/GI: Positive for abdominal pain, of the umbilical area and right upper quadrant. Exam: 13:50 Constitutional: This is a well developed, well nourished patient who is awake, alert, daina and in no acute distress. Head/Face: Normocephalic, atraumatic. Eyes: Pupils equal round and reactive to light, extra-ocular motions intact. Lids and lashes normal. Conjunctiva and sclera are non-icteric and not injected. Cornea within normal limits. Periorbital areas with no swelling, redness, or edema. ENT: Nares patent. No nasal discharge, no septal abnormalities noted. Tympanic membranes are normal and external auditory canals are clear. Oropharynx with no redness, swelling, or masses, exudates, or evidence of obstruction, uvula midline. Mucous membranes moist. Neck: Trachea midline, no thyromegaly or masses palpated, and no cervical lymphadenopathy. Supple, full range of motion without nuchal rigidity, or vertebral point tenderness. No Meningismus. Chest/axilla: Normal chest wall appearance and motion. Nontender with no deformity. No lesions are appreciated. Cardiovascular: Regular rate and rhythm with a normal S1 and S2. No gallops, murmurs, or rubs. Normal PMI, no JVD. No pulse deficits. Respiratory: Lungs have equal breath sounds bilaterally, clear to auscultation and percussion. No rales, rhonchi or wheezes noted. No increased work of breathing, no retractions or nasal flaring. Back: No spinal tenderness. No costovertebral tenderness. Full range of motion. Skin: Warm, dry with normal turgor. Normal color with no rashes, no lesions, and no evidence of cellulitis. MS/ Extremity: Pulses equal, no cyanosis. Neurovascular intact. Full, normal range of motion. Neuro: Awake and alert, GCS 15, oriented to person, place, time, and situation. Cranial nerves II-XII grossly intact. Motor strength 5/5 in all extremities. Sensory grossly intact. Cerebellar exam normal. Normal gait. Psych: Awake, alert, with orientation to person, place and time. Behavior, mood, and affect are within normal limits. 13:50 Abdomen/GI: Inspection: distension, that is mild, Bowel sounds: normal, Palpation: moderate abdominal tenderness, in the umbilical area and right upper quadrant, Liver: no appreciated palpable abnormalities, Hernia: noted in the umbilical area. Vital Signs: 13:27 BP 119 / 77; Pulse 84; Resp 17; Temp 97.8(TE); Pulse Ox 100% on R/A; Weight 83.01 kg tw2 (R); Height 5 ft. 7 in. (170.18 cm); Pain 9/10; 14:30 BP 129 / 92; Pulse 83; Resp 16; Pulse Ox 97% on R/A; zb 15:30 BP 128 / 95; Pulse 68; Resp 16; Pulse Ox 100% on R/A; zb 16:43 BP 109 / 82; Pulse 70; Resp 16; Pulse Ox 100% on R/A; zb 13:27 Body Mass Index 28.66 (83.01 kg, 170.18 cm) tw2 MDM: 13:41 Patient medically screened. daina 13:50 Differential diagnosis: chest wall pain, gastritis, pancreatitis, pneumonia, pulmonary daina embolus, pneumonia, pulmonary edema, Pulmonary Embolism reactive airway disease, Unstable Angina diverticulitis, non-specific abd pain, pancreatitis, Peptic Ulcer Disease. Antibiotic administration: Not indicated. HEART Score: History: Slightly Suspicious (0), Age: < or = 45 years (0), Risk Factors: No Risk Factors Known (0). The patient's Wells Deep Vein Thrombosis Score was calculated as follows: Total Score: 0. This patient was found to be at low risk for a deep vein thrombosis by using the Well's assessment criteria Imm/Surg in last 4 wks (1.5 Pts) Total Score: 0-2 Pts- Low Risk. The patient's pulmonary embolism risk score was calculated as follows: patient has experienced immobilization or surgery in the last four weeks (1.5 Pts) Total Score: 0-2 points. This patient was found to be at low risk for a pulmonary embolism by using the Well's assessment criteria patient has experienced immobilization or surgery in the last four weeks (1.5 Pts) Total Score: 0-2 points. This patient was found to be at low risk for a pulmonary embolism by using the Well's assessment criteria. SHANE Risk Score: TOTAL SCORE = 0. Immunization status:. Data reviewed: vital signs, nurses notes, lab test result(s), EKG, radiologic studies, CT scan, plain films. 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 Test interpretation: by ED physician or midlevel provider: ECG, plain radiologic studies. Counseling: I had a detailed discussion with the patient and/or guardian regarding: the historical points, exam findings, and any diagnostic results supporting the discharge/admit diagnosis, lab results, radiology results. 05/07 13:50 Order name: Basic Metabolic Panel [facility] 05/07 13:50 Order name: CBC with Diff; Complete Time: 15:04 [facility] 05/07 13:50 Order name: Hepatic Function [facility] 05/07 13:50 Order name: Lipase [facility] 05/07 13:51 Order name: Basic Metabolic Panel; Complete Time: 15:04 [facility] 05/07 13:51 Order name: Liver (Hepatic) Function; Complete Time: 15:04 [facility] 05/07 13:50 Order name: Chest Single View XRAY [facility] 05/07 13:50 Order name: CT Chest For PE Angio; Complete Time: 15:04 [facility] 05/07 13:50 Order name: CT Abd/Pelvis - IV Contrast Only [facility] 05/07 13:51 Order name: Lipase; Complete Time: 15:04 [facility] 05/07 14:25 Order name: Urine Dipstick--Ancillary (enter results); Complete Time: 15:04 05/07 14:25 Order name: Urine --Ancillary (enter results); Complete Time: 15:04 05/07 13:50 Order name: IV Saline Lock; Complete Time: 13:59 [facility] 05/07 13:50 Order name: Labs collected and sent; Complete Time: 13:59 [facility] 05/07 13:50 Order name: Urine Dipstick-Ancillary (obtain specimen); Complete Time: 15:07 [facility] 05/07 13:50 Order name: Urine Test (obtain specimen); Complete Time: 15:07 daina Administered Medications: 13:55 Drug: NS 0.9% 1000 ml Route: IV; Rate: 1 bolus; Site: right antecubital; zb 15:00 Follow up: Response: No adverse reaction; IV Status: Completed infusion; IV Intake: zb 1000ml 13:55 Drug: Pepcid 20 mg Route: IVP; Site: right antecubital; zb 14:51 Follow up: Response: No adverse reaction zb 13:55 Drug: morphine 4 mg Route: IVP; Site: right antecubital; zb 14:20 Follow up: Response: No adverse reaction; Pain is unchanged, physician notified zb 13:55 Drug: Zofran (Ondansetron) 4 mg Route: IVP; Site: right antecubital; zb 14:50 Follow up: Response: No adverse reaction zb 15:15 Drug: morphine 4 mg Route: IVP; Site: right antecubital; zb 16:41 Follow up: Response: No adverse reaction zb 16:42 Follow up: Response: No adverse reaction; Marked relief of symptoms; Pain is decreased zb 15:15 Drug: Zofran (Ondansetron) 4 mg Route: IVP; Site: right antecubital; zb 16:42 Follow up: Response: No adverse reaction zb 15:15 Drug: NS 0.9% 1000 ml Route: IV; Rate: 1 bolus; Site: right antecubital; zb 16:42 Follow up: Response: No adverse reaction; IV Status: Completed infusion; IV Intake: zb 1000ml 16:11 Drug: Bactrim (160 mg-800 mg (DS) 1 tablet Route: PO; zb 16:41 Follow up: Response: No adverse reaction zb Disposition: 05/07/20 15:54 Discharged to Home. Impression: Abdominal tenderness, Pleurisy. - Condition is Stable. - Discharge Instructions: Abdominal Pain, Adult, Pleurisy, Incentive Spirometer, Abdominal Pain, Adult, [id number], Pleurisy, [id number]. - Prescriptions for Pepcid 20 mg Oral Tablet - take 1 tablet by ORAL route every 12 hours for 10 days; 20 tablet. Tylenol- Codeine #3 300-30 mg Oral Tablet - take 2 tablet by ORAL route every 6 hours As needed; 30 tablet. Bactrim DS 800- 160 mg Oral Tablet - take 1 tablet by ORAL route every 12 hours for 7 days; 14 tablet. - Medication Reconciliation Form, Thank You Letter, Antibiotic Education, Prescription Opioid Use, Work release form form. - Follow up: Private Physician; When: 2 - 3 days; Reason: Recheck today's complaints, Continuance of care, Re-evaluation by your physician. Follow up: Danny Goins MD; When: 1 - 2 days; Reason: Recheck today's complaints, Continuance of care, Re-evaluation by your physician. - Problem is new. - Symptoms have improved. Signatures: Dispatcher [employer] EDMS Minesh Agrawal MD MD cha Wise, Tara RN RN tw2 Misty Delgado RN RN zb Corrections: (The following items were deleted from the chart) 16:46 15:54 05/07/2020 15:54 Discharged to Home. Impression: Abdominal tenderness; Pleurisy. zb Condition is Stable. Forms are Medication Reconciliation Form, Thank You Letter, Antibiotic Education, Prescription Opioid Use. Follow up: Private Physician; When: 2 - 3 days; Reason: Recheck today's complaints, Continuance of care, Re-evaluation by your physician. Follow up: Dr. Danny Goins; When: 1 - 2 days; Reason: Recheck today's complaints, Continuance of care, Re-evaluation by your physician. Problem is new. Symptoms have improved. daina
[2020-05-07] MEDS ORDERED: SMZ./TMP. 800/160 MG TABLET ONE (16:17)
[2020-05-07 17:14] VITALS: TEMP 97.8
[2020-05-07 17:17] VITALS: O2SAT 100
[2020-05-07 17:18] VITALS: BP 109/82
== END 2020-05-07 16:46 | disposition home or self-care (01) ==
LOC: ER 12:50
DX: R09.1 Pleurisy (principal); R10.819 Abdominal tenderness, unspecified site; Z90.49 Acquired absence of other specified parts of digestive tract; Z88.1 Allergy status to other antibiotic agents; Z91.040 Latex allergy status; Z91.048 Other nonmedicinal substance allergy status
CPT/HCPCS: 96361; 85025; 80048; 36415; 81025; 82565; 80076; 81003; 83690; 71275; 74177; 71045; 96375; 96374; 99284; J7030 ×2; J2405 ×2

== ENCOUNTER 2024-03-22 09:26 | Emergency (ER) | payer BC ==
[2024-03-22] MEDS ORDERED: IBUPROFEN 200 MG TAB PO ONE (09:52)
[2024-03-22 10:19] LABS: SARS-CoV-2 Antigen CONTROL BLUE LINE VIS/BG OK; SARS-CoV-2 Antigen Rapid Res Negative (Negative)
--- NOTE | 2024-03-22 10:22 | RAD REPORT ---
EXAMINATION: TWO VIEW CHEST XR CLINICAL INDICATION: Cough;Dyspnea TECHNIQUE: 2 views of the chest was performed. COMPARISON: No prior exam. FINDINGS: The lungs are well inflated and clear. The heart is normal in size. No displaced fractures evident. IMPRESSION: No acute or significant abnormalities.
[2024-03-22] MEDS ORDERED: AZITHROMYCIN 250 MG TAB ONE (10:58)
--- NOTE | 2024-03-22 11:24 | EDPHYS ---
Physician Documentation [facility] Name: Leticia Hester Age: 34 yrs Sex: Female : 1990 Arrival Date: 03/22/2024 Time: : Bed 14 Private MD: ED Physician Minesh Agrawal HPI: 03/22 11:09 This 34 yrs old Female presents to ER via Ambulatory with complaints of Flu daina Symptoms, Chest Pain. 11:09 The patient or guardian reports chest pain that is located primarily in the anterior [facility] chest wall, bilaterally. The pain does not radiate. Associated signs and symptoms: Pertinent positives: cough. The chest pain is described as pain with cough. Duration: The patient or guardian reports multiple episodes, that wax and wane. Modifying factors: The symptoms are alleviated by remaining still. Severity of pain: At its worst the pain was mild in the emergency department the pain is unchanged. The patient has experienced similar episodes in the past, a few times. Historical: - Allergies: 09:37 Augmentin; ll1 09:37 Latex; ll1 - Home Meds: 09:48 None [Active]; ll1 - PMHx: 09:48 pneumonia/bronchitis; ll1 - PSHx: 09:48 Cholecystectomy; bladder mesh; tubes tied; ll1 - Immunization history:: Adult Immunizations up to date. - Infectious Disease History:: Denies. - Social history:: Smoking status: Reported history of juuling and/or vaping. - Family history:: not pertinent. ROS: 11:09 Constitutional: Negative for fever, chills, and weight loss, Eyes: Negative for injury, daina pain, redness, and discharge, Neck: Negative for injury, pain, and swelling, Cardiovascular: Negative for chest pain, palpitations, and edema, Abdomen/GI: Negative for abdominal pain, nausea, vomiting, diarrhea, and constipation, Back: Negative for injury and pain, : Negative for injury, bleeding, discharge, and swelling, MS/Extremity: Negative for injury and deformity, Skin: Negative for injury, rash, and discoloration, Neuro: Negative for headache, weakness, numbness, tingling, and seizure, Psych: Negative for depression, anxiety, suicide ideation, homicidal ideation, and hallucinations, Allergy/Immunology: Negative for hives, rash, and allergies, Endocrine: Negative for neck swelling, polydipsia, polyuria, polyphagia, and marked weight changes, Hematologic/Lymphatic: Negative for swollen nodes, abnormal bleeding, and unusual bruising, : ENT: Positive for rhinorrhea, sinus pain, sore throat, : Respiratory: Positive for cough, "sounds productive", : MS/extremity: Negative for acute changes, Exam: : Constitutional: This is a well developed, well nourished patient who is awake, alert, daina and in no acute distress. Head/Face: Normocephalic, atraumatic. Eyes: Pupils equal round and reactive to light, extra-ocular motions intact. Lids and lashes normal. Conjunctiva and sclera are non-icteric and not injected. Cornea within normal limits. Periorbital areas with no swelling, redness, or edema. ENT: Nares patent. No nasal discharge, no septal abnormalities noted. Tympanic membranes are normal and external auditory canals are clear. Oropharynx with no redness, swelling, or masses, exudates, or evidence of obstruction, uvula midline. Mucous membranes moist. Neck: Trachea midline, no thyromegaly or masses palpated, and no cervical lymphadenopathy. Supple, full range of motion without nuchal rigidity, or vertebral point tenderness. No Meningismus. Chest/axilla: Normal chest wall appearance and motion. Nontender with no deformity. No lesions are appreciated. Cardiovascular: Regular rate and rhythm with a normal S1 and S2. No gallops, murmurs, or rubs. Normal PMI, no JVD. No pulse deficits. Respiratory: Lungs have equal breath sounds bilaterally, clear to auscultation and percussion. No rales, rhonchi or wheezes noted. No increased work of breathing, no retractions or nasal flaring. Abdomen/GI: Soft, non-tender, with normal bowel sounds. No distension or tympany. No guarding or rebound. No evidence of tenderness throughout. Back: No spinal tenderness. No costovertebral tenderness. Full range of motion. Skin: Warm, dry with normal turgor. Normal color with no rashes, no lesions, and no evidence of cellulitis. MS/ Extremity: Pulses equal, no cyanosis. Neurovascular intact. Full, normal range of motion. Neuro: Awake and alert, GCS 15, oriented to person, place, time, and situation. Cranial nerves II-XII grossly intact. Motor strength 5/5 in all extremities. Sensory grossly intact. Cerebellar exam normal. Normal gait. Psych: Awake, alert, with orientation to person, place and time. Behavior, mood, and affect are within normal limits. 11:09 Musculoskeletal/extremity: ROM: no acute changes, Circulation is intact in all extremities. Sensation intact. Compartment Syndrome exam of affected extremity: is normal. Joints: All joints appear normal with full range of motion. DVT Exam: No signs of deep vein thrombosis. no pain, no swelling, no tenderness, negative Homans' sign noted on exam, no appreciated bluish discoloration, no erythema, no increased warmth, Vital Signs: 09:49 BP 124 / 82; Pulse 96; Resp 18; Temp 97.4; Pulse Ox 100% ; Weight 81.65 kg; Height 5 ll1 ft. 6 in. ; Pain 7/10; 09:49 Body Mass Index 29.05 (81.65 kg, 167.64 cm) ll1 09:49 Pain Scale: Adult ll1 MDM: 09:29 Medical Screening Exam initiated daina 11:13 Differential diagnosis: anxiety, costochondritis, gastritis, pneumonia, pulmonary daina embolus, stable angina, thoracic aortic disection, unstable angina. Data reviewed: vital signs, nurses notes, lab test result(s), Flu: negative. Consideration of Admission/Observation Escalation of care including admission/observation considered. Independent interpretation of the following test(s) in the Emergency Department X-Ray: My interpretation is cxr. Historians other than the Patient: pt well informed. Care significantly affected by the following chronic conditions: pna/bronchitis. Counseling: I had a detailed discussion with the patient and/or guardian regarding the historical points, exam findings, and any diagnostic results supporting the discharge/admit diagnosis, lab results. 03/22 09: Order name: Urinalysis w/ reflexes [facility] 03/22 09:31 Order name: PREGU [facility] 03/22 09: Order name: Flu; Complete Time: 10:44 [facility] 03/22 09: Order name: SARS RAPID; Complete Time: 10:44 [facility] 03/22 11:37 Order name: Urine Culture EDMS 03/22 09: Order name: Chest Pa And Lat (2 Views) XRAY; Complete Time: 10:44 [facility] Administered Medications: 10:10 Drug: Ibuprofen PO 600 mg PO once Route: PO; kc6 10:53 Follow up: Response: No adverse reaction kc6 11:04 Drug: AZITHromycin PO 500 mg PO once Route: PO; kc6 11:30 Follow up: Response: No adverse reaction kc6 11:36 Drug: Hydrocodone-Acetaminophen PO (7.5 mg-325 mg) 1 tabs PO once Route: PO; kc6 12:00 Follow up: Response: No adverse reaction; Pain is decreased; RASS: Alert and Calm (0) kc6 11:36 Drug: Dexamethasone IM 10 mg IM once Route: IM; Site: left deltoid; kc6 12:00 Follow up: Response: No adverse reaction kc6 Disposition Summary: 03/22/24 11:24 Discharge Ordered Notes: Location: Home [facility] Problem: new [facility] Symptoms: have improved daina Condition: Stable daina Diagnosis - Acute upper respiratory infection, unspecified daina - Pleurisy daina Followup: daina - With: Private Physician - When: 2 - 3 days - Reason: Recheck today's complaints, Re-evaluation by your physician Discharge Instructions: - Discharge Summary Sheet daina - Pleurisy daina - Upper Respiratory Infection, Adult daina - Upper Respiratory Infection, Adult, [id number] daina - Cough, Adult, [id number] daina - Cough, Adult [facility] Forms: - Medication Reconciliation Form [facility] - Antibiotic Education [facility] - Prescription Opioid Use [facility] - Patient Portal Instructions [facility] - Leadership Thank You Letter [facility] - Work release form kc6 Prescriptions: - Tessalon Perles 100 mg Oral capsule - take 2 capsule ORAL route every 8 hours As needed; 30 capsule; Refills: 0, [facility] Product Selection Permitted - Diclofenac Sodium 75 mg Oral tablet, delayed release (enteric coated) - take 1 tablet ORAL route 2 times per day; 20 tablet; Refills: 0, Product [facility] Selection Permitted - Guaifenesin AC 10-100 mg/5 mL Oral liquid - take 7.5 milliliter ORAL route every 6 hours As needed; 180 milliliter; [facility] Refills: 0, Product Selection Permitted - Zithromax 500 mg Oral Tablet - take 1 tablet ORAL route once daily for 5 days; 5 tablet; Refills: 0, Product [facility] Selection Permitted Signatures: Dispatcher [employer] Minesh Sosa MD MD cha Lewis, Lynsay RN RN ll1 Rachel Willard RN RN kc6 Corrections: (The following items were deleted from the chart) 09:31 Chest Pa And Lat (2 Views)+RAD.RAD.BRZ ordered. EDMS EDMS :31 Urinalysis+U.LAB.BRZ ordered. EDMS EDMS 09:31 Test, Urine+UC.LAB.BRZ ordered. EDMS EDMS 09:31 Influenza Screen (A \\T\\ B)+BA.LAB.BRZ ordered. EDMS EDMS 09:31 SARS-COV-2 Antigen Rapid+I.LAB.BRZ ordered. EDMS EDMS
--- NOTE | 2024-03-22 11:24 | ER ---
Nurse's Notes [facility] Name: Leticia Hester Age: 34 yrs Sex: Female : 1990 Arrival Date: 03/22/2024 Time: : Bed 14 Private MD: Diagnosis: Acute upper respiratory infection, unspecified;Pleurisy Presentation: 03/22 09:49 Chief complaint: Patient states: Fever, cough, congestion, BAH, sore throat, fatigue ll1 started Wednesday night. Coronavirus screen: Client denies travel out of the [place] in the last 14 days. congestion, cough unrelated to allergies, fatigue, headache, sore throat, Client presents with at least one sign or symptom that may indicate coronavirus-19. Standard/surgical mask placed on the client. Ebola Screen: Patient denies travel to an Ebola-affected area in the 21 days before illness onset. Initial Sepsis Screen: Does the patient meet any 2 criteria? No. Patient's initial sepsis screen is negative. Does the patient have a suspected source of infection? No. Patient's initial sepsis screen is negative. Risk Assessment: Do you want to hurt yourself or someone else? Patient reports no desire to harm self or others. Onset of symptoms was March 19, 2024. 09:49 Method Of Arrival: Ambulatory ll1 09:49 Acuity: JACOB 4 ll1 Triage Assessment: 09:50 General: Appears uncomfortable, Behavior is calm, cooperative, appropriate for age, ll1 Reports fever for fatigue for. EENT: Reports nasal congestion. Neuro: Reports headache weakness. Respiratory: Reports cough that is. Historical: - Allergies: 09:37 Augmentin; ll1 09:37 Latex; ll1 - Home Meds: 09:48 None [Active]; ll1 - PMHx: 09:48 pneumonia/bronchitis; ll1 - PSHx: 09:48 Cholecystectomy; bladder mesh; tubes tied; ll1 - Immunization history:: Adult Immunizations up to date. - Infectious Disease History:: Denies. - Social history:: Smoking status: Reported history of juuling and/or vaping. - Family history:: not pertinent. Screenin:12 [facility] ED Fall Risk Assessment (Adult) History of falling in the last 3 months, kc6 including since admission No falls in past 3 months (0 pts) Confusion or Disorientation No (0 pts) Intoxicated or Sedated No (0 pts) Impaired Gait No (0 pts) Mobility Assist Device Used No (0 pt) Altered Elimination No (0 pt) Score/Fall Risk Level 0 - 2 = Low Risk Oriented to surroundings. Abuse screen: Denies threats or abuse. Denies injuries from another. Nutritional screening: No deficits noted. Tuberculosis screening: No symptoms or risk factors identified. Assessment: 10:10 General: Appears in no apparent distress. uncomfortable, well groomed, well developed, kc6 Behavior is calm, cooperative, appropriate for age. Pain: Complains of pain in epigastric area Pain radiates to right breast Pain began 1 day ago. Neuro: Level of Consciousness is awake, alert, obeys commands, Oriented to person, place, time, situation, Appropriate for age. Cardiovascular: Capillary refill < 3 seconds. Respiratory: Reports shortness of breath on exertion cough that is productive, pain with cough pain with respiration Airway is patent Trachea midline Respiratory effort is even, unlabored, Respiratory pattern is regular, symmetrical. GI: No signs and/or symptoms were reported involving the gastrointestinal system. : No signs and/or symptoms were reported regarding the genitourinary system. EENT: Reports nasal congestion. Derm: No signs and/or symptoms reported regarding the dermatologic system. Skin is intact, is healthy with good turgor, Skin is pink, warm \T\ dry. Musculoskeletal: No signs and/or symptoms reported regarding the musculoskeletal system. Circulation, motion, and sensation intact. Capillary refill < 3 seconds, Range of motion: intact in all extremities. 11:22 Reassessment: Patient appears in no apparent distress at this time. No changes from kc6 previously documented assessment. Patient and/or family updated on plan of care and expected duration. Pain level reassessed. Patient is alert, oriented x 3, equal unlabored respirations, skin warm/dry/pink. Patient states symptoms have not improved. 12:00 Reassessment: Patient appears in no apparent distress at this time. No changes from kc6 previously documented assessment. Patient and/or family updated on plan of care and expected duration. Pain level reassessed. Patient is alert, oriented x 3, equal unlabored respirations, skin warm/dry/pink. Vital Signs: 09:49 BP 124 / 82; Pulse 96; Resp 18; Temp 97.4; Pulse Ox 100% ; Weight 81.65 kg; Height 5 ll1 ft. 6 in. ; Pain 7/10; 09:49 Body Mass Index 29.05 (81.65 kg, 167.64 cm) ll1 09:49 Pain Scale: Adult ll1 ED Course: 09:28 Patient arrived in ED. im 09:29 Minesh Agrawal MD is Attending Physician. daina 09:37 Arm band placed on. ll1 09:45 Chest Pa And Lat (2 Views) XRAY In Process Unspecified. EDMS 09:50 Triage completed. ll1 09:51 Patient placed in an exam room, on a stretcher. ll1 09:52 Rachel Willard, THERESA is Primary Nurse. kc6 10:12 Patient has correct armband on for positive identification. Bed in low position. Call kc6 light in reach. Side rails up X 1. Pulse ox on. NIBP on. Door closed. Noise minimized. Lights dimmed. Pillow given. 10:12 Patient maintains SpO2 saturation greater than 95% on room air. kc6 11:22 Patient requests pain medication. kc6 11:22 PREGU Sent. kc6 11:22 Urinalysis w/ reflexes Sent. kc6 12:00 No provider procedures requiring assistance completed. Patient did not have IV access kc6 during this emergency room visit. Administered Medications: 10:10 Drug: Ibuprofen PO 600 mg PO once Route: PO; kc6 10:53 Follow up: Response: No adverse reaction kc6 11:04 Drug: AZITHromycin PO 500 mg PO once Route: PO; kc6 11:30 Follow up: Response: No adverse reaction kc6 11:36 Drug: Hydrocodone-Acetaminophen PO (7.5 mg-325 mg) 1 tabs PO once Route: PO; kc6 12:00 Follow up: Response: No adverse reaction; Pain is decreased; RASS: Alert and Calm (0) kc6 11:36 Drug: Dexamethasone IM 10 mg IM once Route: IM; Site: left deltoid; kc6 12:00 Follow up: Response: No adverse reaction kc6 Medication: 12:00 VIS not applicable for this client. kc6 Outcome: 11:24 Discharge ordered by . [facility] 12:00 Discharged to home ambulatory, with significant other, kc6 12:00 Condition: good 12:00 Discharge instructions given to patient, Instructed on discharge instructions, follow up and referral plans. no drinking with medication, no driving heavy equipment, medication usage, Demonstrated understanding of instructions, follow-up care, medications, Prescriptions given X 4, 12:01 Patient left the ED. kc6 Signatures: Dispatcher [employer] EDMinesh Celeste MD MD cha Lewis, Lynsay RN RN ll1 Rachel Willard RN RN kc6 Kassi Paulino
[2024-03-22] MEDS ORDERED: HYDROCODONE/APAP 7.5/325 MG TAB ONE (11:29)
[2024-03-22] MEDS ORDERED: dexAMETHasone 10 MG/ML VIAL ONE (11:29)
[2024-03-22 11:33] LABS: Sqamous Epithelial <5 /HPF (None Seen); Urine Bacteria None Seen /HPF (<20); Urine Bilirubin NEGATIVE (Negative); Urine Blood Negative (Negative); Urine Clarity Turbid (Clear); Urine Color Light-Yellow (Yellow); Urine Culture Reflex Order REFLEXED; Urine Glucose NEGATIVE (Negative); Urine Ketones NEGATIVE (Negative); Urine Microscopic Reflex YN ORDER UMIC; Urine Mucus Slight /HPF (None Seen); Urine Nitrite NEGATIVE (Negative); Urine Protein NEGATIVE (Negative); Urine RBC <5 /HPF (None Seen); Urine Urobilinogen Normal (Normal); Urine pH 7.5 (5.0-7.0)
[2024-03-22 12:05] VITALS: BP 124/82; TEMP 97.4; O2SAT 100
== END 2024-03-22 12:01 | disposition home or self-care (01) ==
LOC: ER 09:26
DX: J06.9 Acute upper respiratory infection, unspecified (principal); R09.1 Pleurisy; Z11.52 Encounter for screening for COVID-19
CPT/HCPCS: 87088; 81001; 87086; 36415; 81025; 87077; 87186; 87804 ×2; 71046; 87811; J1100

== ENCOUNTER 2024-06-07 22:21 | Emergency (ER) | payer BC ==
[2024-06-07] MEDS ORDERED: HYDROCODONE/APAP 5/325 MG TAB ONE (22:57)
[2024-06-07] MEDS ORDERED: KETOROLAC 30 MG/ML INJ ONE (22:57)
[2024-06-07] MEDS ORDERED: ONDANSETRON 4 MG (ODT) TAB ONE (23:05)
[2024-06-07 23:58] LABS: Absolute Eosinophils 0.2 K/uL (0-0.5); Absolute Lymphocytes (CBC) 2.3 K/uL (0.7-4.9); Absolute Monocytes 0.5 K/uL (0.1-1.3); Basophils % 0.4 % (0-1.3); Eosinophils % 1.9 % (0-4.4); Hematocrit 36.5 % (36.0-45.0); Hemoglobin 11.7 g/dL (12.0-15.0); Lymphocytes % 25.3 % (15.3-44.8); MCH 25.6 pg (27.0-35.0); MCHC 32.1 g/dL (32.0-36.0); MCV 79.8 fL (80-100); MPV 8.2 fL (7.6-11.3); Monocytes % 5.5 % (3.3-12.3); Neutrophils % 66.9 % (41.7-73.7); Nucleated Red Blood Cells % 0.3 % (0-0); Platelets 204 thou/uL (152-406); RBC Red Blood Cell Count 4.57 M/uL (3.86-4.86); Red Cell Distribution Width 16.6 % (12.1-15.2)
[2024-06-08 00:15] LABS: Anion Gap 5.7 mEq/L (5.0-15.0); BUN Blood Urea Nitrogen 15 mg/dL (7-18); Bicarbonate 29 mEq/L (21-32); Glomerular Filtration Rate 116 ml/min (=/>90); Glucose Level 104 mg/dL (74-106); Potassium 3.7 mEq/L (3.5-5.1); Sodium Level 141 mEq/L (136-145)
[2024-06-08 00:16] LABS: Troponin High Sensitivity < 3.0 pg/mL (<58.9)
--- NOTE | 2024-06-08 00:21 | EDPHYS ---
Physician Documentation [facility] Name: Leticia Hester Age: 34 yrs Sex: Female : 1990 Arrival Date: 06/07/2024 Time: 22:21 Bed DX3 Private MD: ED Physician Kiet Hayden HPI: 06/07 22:30 This 34 yrs old Female presents to ER via Unassigned with complaints of Chest kb Pain, upper back pain. 22:30 Pt is a 34 year old female who presents for chest pain that has been intermittent for a kb few days and got worse about one hour ago. Reports pain is worse with movement and breathing. denies cough, congestion, injury, fever. . Historical: - Allergies: 23:05 Augmentin; cm10 23:05 Latex; cm10 - PMHx: 23:05 pneumonia/bronchitis; cm10 - PSHx: 23:05 bladder mesh; Cholecystectomy; tubes tied; cm10 - Immunization history:: Adult Immunizations up to date. - Infectious Disease History:: Denies. - Social history:: Smoking status: Patient denies any tobacco usage or history of. ROS: 22:30 Constitutional: As per HPI kb Exam: 22:30 Constitutional: This is a well developed, well nourished patient who is awake, alert, kb and in no acute distress. Head/Face: Normocephalic, atraumatic. ENT: Moist Mucous membranes Cardiovascular: Regular rate Respiratory: Respirations even and unlabored. No increased work of breathing. Talking in full sentences Abdomen/GI: Soft, non-tender. No distention Skin: Warm, dry with normal turgor. Normal color. MS/ Extremity: Pulses equal, no cyanosis. Neurovascular intact. Full, normal range of motion. Neuro: Awake and alert, GCS 15, oriented to person, place, time, and situation. 22:30 Chest/axilla: Inspection: normal, Palpation: tenderness, that is moderate, of the anterior aspect of right upper chest, that totally reproduces the patient's complaints, 23:14 ECG was reviewed by the Attending Physician. kb Vital Signs: 23:07 BP 110 / 79; Pulse 80; Resp 16; Temp 97.6; Pulse Ox 100% on R/A; Weight 81.65 kg; cm10 Height 5 ft. 6 in. ; Pain 6/10; 06/08 00:45 BP 117 / 77; Pulse 77; Resp 17 S; Temp 97.4(O); Pulse Ox 100% on R/A; lg3 06/07 23:07 Body Mass Index 29.05 (81.65 kg, 167.64 cm) cm10 06/07 23:07 Pain Scale: Adult cm10 MDM: 02 22:28 Medical Screening Exam initiated kb 06/08 00:20 Differential diagnosis: acute mi, arrhythmia, chest wall pain, pleurisy. Data reviewed: vital signs, nurses notes. Counseling: I had a detailed discussion with the patient and/or guardian regarding the historical points, exam findings, and any diagnostic results supporting the discharge/admit diagnosis, lab results, radiology results, the need for outpatient follow up, a family practitioner, to return to the emergency department if symptoms worsen or persist or if there are any questions or concerns that arise at home. 06/07 22:32 Order name: Basic Metabolic Panel; Complete Time: 00:16 kb 06/07 22:32 Order name: CBC with Diff; Complete Time: 00:02 kb 06/07 22:32 Order name: Troponin HS; Complete Time: 00:16 kb 06/07 22:32 Order name: XRAY Chest (1 view) kb 02 22:32 Order name: EKG; Complete Time: 22:32 kb 06/07 22:32 Order name: EKG - Nurse/Tech; Complete Time: 23:15 kb 06/07 22:32 Order name: IV Saline Lock; Complete Time: 23:47 kb 06/07 22:32 Order name: Labs collected and sent; Complete Time: 23:47 kb 06/07 22:32 Order name: O2 Per Protocol; Complete Time: 23:48 kb 06/07 22:32 Order name: O2 Sat Monitoring; Complete Time: 23:48 kb 06/07 23:29 Order name: Misc. Order: RECOLLECT ALL LABS; Complete Time: 23:46 rv1 EC/05 23:14 Rate is 92 beats/min. Rhythm is regular. QRS [place] is Normal. [place] interval is normal at kb 122 msec. QRS interval is normal at 84 msec. QT interval is normal at 450 msec. Administered Medications: 23:01 CANCELLED (Physician Discretion): mg IVP once kb 23:08 Drug: HYDROcodone-acetaminophen PO 5 mg-325 mg 1 tabs PO once Route: PO; 10 06/08 00:39 Follow up: Response: No adverse reaction; No change in condition; RASS: Alert and Calm lg3 (0) 06/07 23:13 Drug: Ondansetron PO 4 mg PO once Route: PO; 10 06/08 00:39 Follow up: Response: No adverse reaction 3 06/07 23:15 Drug: Ketorolac IM 30 mg IM once Route: IM; Site: right gluteus; 10 06/08 00:39 Follow up: Response: No adverse reaction 3 06/07 23:45 CANCELLED (Duplicate Order): Ondansetron Oral Disintegrating Tablet 4 mg PO once 3 06/08 00:38 Drug: morphine IVP or IV 4 mg IVP once over 4 mins Route: IVP; Infused Over: 4 mins; lg3 Site: left antecubital; 00:39 Follow up: Response: No adverse reaction; Medication administered at discharge. lg3 Disposition: 02:36 Co-signature as Attending Physician, Kiet Hayden MD I reviewed the patient's care rn provided by the Advanced Practice Provider and agree with the diagnosis and treatment plan. Disposition Summary: 06/08/24 00:21 Discharge Ordered Notes: Location: Home kb Condition: Stable kb Diagnosis - Chest pain on breathing kb Followup: kb - With: Emergency Department - When: As needed - Reason: Worsening of condition Followup: kb - With: Private Physician - When: 2 - 3 days - Reason: Recheck today's complaints, Continuance of care, Re-evaluation by your physician Discharge Instructions: - Discharge Summary Sheet kb - Chest Wall Pain, [id number] kb - Pleurisy, [id number] kb Forms: - Work release form kb - Medication Reconciliation Form kb - Antibiotic Education kb - Prescription Opioid Use kb - Patient Portal Instructions kb - Leadership Thank You Letter kb Prescriptions: - Diclofenac Sodium 75 mg Oral tablet, delayed release (enteric coated) - take 1 tablet ORAL route 2 times per day As needed; 30 tablet; Refills: 0, kb Product Selection Permitted - orphenadrine citrate 100 mg Oral Tablet Sustained Release - take 1 tablet ORAL route 2 times per day As needed; 20 tablet; Refills: 0, kb Product Selection Permitted Signatures: Dispatcher [employer] Connie Olvera, PARTY PLAN DEMONSTRATOR-C PARTY PLAN DEMONSTRATOR-Ckb Kiet Hayden MD MD rn AbleSarah RN RN lg3 Alyse Sotelo 1 Sari Jalloh RN RN cm10 Corrections: (The following items were deleted from the chart) 06/07 23:01 22:32 Ketorolac IVP 15 mg IVP once ordered. kb kb 23:45 23:13 Ondansetron Oral Disintegrating Tablet Oral Disintegrating Tablet 4 mg PO once lg3 ordered. kb
--- NOTE | 2024-06-08 00:21 | ER ---
Nurse's Notes [facility] Name: Leticia Hester Age: 34 yrs Sex: Female : 1990 Arrival Date: 06/07/2024 Time: 22:21 Bed DX3 Private MD: Diagnosis: Chest pain on breathing Presentation: 06/07 23:07 Chief complaint: Patient states: Chest pain and upper back pain that has been cm10 intermittent over the last few days. Coronavirus screen: Client denies travel out of the [place] in the last 14 days. Ebola Screen: Patient denies travel to an Ebola-affected area in the 21 days before illness onset. Initial Sepsis Screen: Does the patient meet any 2 criteria? No. Patient's initial sepsis screen is negative. Does the patient have a suspected source of infection? No. Patient's initial sepsis screen is negative. Risk Assessment: Do you want to hurt yourself or someone else? Patient reports no desire to harm self or others. Onset of symptoms was June 07, 2024. 23:07 Method Of Arrival: Ambulatory cm10 23:07 Acuity: JACOB 3 cm10 Triage Assessment: 23:08 General: Appears uncomfortable, Behavior is calm, cooperative. Neuro: No deficits cm10 noted. Level of Consciousness is awake, alert, obeys commands, Oriented to person, place, time, situation, Appropriate for age. Respiratory: No deficits noted. Airway is patent Respiratory effort is even, unlabored, Respiratory pattern is regular, symmetrical. Historical: - Allergies: 23:05 Augmentin; cm10 23:05 Latex; cm10 - PMHx: 23:05 pneumonia/bronchitis; cm10 - PSHx: 23:05 bladder mesh; Cholecystectomy; tubes tied; cm10 - Immunization history:: Adult Immunizations up to date. - Infectious Disease History:: Denies. - Social history:: Smoking status: Patient denies any tobacco usage or history of. Screenin/06 00:45 [facility] ED Fall Risk Assessment (Adult) History of falling in the last 3 months, lg3 including since admission No falls in past 3 months (0 pts) Confusion or Disorientation No (0 pts) Intoxicated or Sedated No (0 pts) Impaired Gait No (0 pts) Mobility Assist Device Used No (0 pt) Altered Elimination No (0 pt) Score/Fall Risk Level 0 - 2 = Low Risk Oriented to surroundings, Maintained a safe environment, Educated pt \T\ family on fall prevention, incl call for assistance when getting out of bed, Assessed \T\ reinforced patient's understanding of fall precautions. Abuse screen: Denies threats or abuse. Denies injuries from another. Nutritional screening: No deficits noted. Tuberculosis screening: No symptoms or risk factors identified. Assessment: 00:39 General: Appears in no apparent distress. uncomfortable, Behavior is calm, cooperative. lg3 Pain: Complains of pain in anterior aspect of right upper chest Pain radiates to back Pain currently is 5 out of 10 on a pain scale. Pain began 2-3 days ago. Neuro: No deficits noted. Fernandes Agitation-Sedation Scale (RASS): 0 - Alert and Calm Level of Consciousness is awake, alert, obeys commands, Oriented to person, place, time, situation. Cardiovascular: Reports chest pain, Heart tones S1 S2 present Capillary refill < 3 seconds Clubbing of nail beds is absent JVD is absent Patient's skin is warm and dry. Respiratory: No deficits noted. Airway is patent Respiratory effort is even, unlabored, Respiratory pattern is regular, symmetrical. GI: No deficits noted. No signs and/or symptoms were reported involving the gastrointestinal system. : No signs and/or symptoms were reported regarding the genitourinary system. EENT: No deficits noted. No signs and/or symptoms were reported regarding the EENT system. Derm: No deficits noted. No signs and/or symptoms reported regarding the dermatologic system. Skin is intact, is healthy with good turgor, Skin is dry, Skin is normal, Skin temperature is warm. Musculoskeletal: No deficits noted. Circulation, motion, and sensation intact. Range of motion: intact in all extremities. Vital Signs: 06/07 23:07 BP 110 / 79; Pulse 80; Resp 16; Temp 97.6; Pulse Ox 100% on R/A; Weight 81.65 kg; cm10 Height 5 ft. 6 in. ; Pain 10/10; 06/08 00:45 BP 117 / 77; Pulse 77; Resp 17 S; Temp 97.4(O); Pulse Ox 100% on R/A; lg3 06/07 23:07 Body Mass Index 29.05 (81.65 kg, 167.64 cm) cm10 06/07 23:07 Pain Scale: Adult cm10 ED Course: 06/07 22:26 Patient arrived in ED. gm2 22:27 Connie Rosales FNP-C [facility] kb 22:27 Kiet Hayden MD is Attending Physician. kb 22:58 XRAY Chest (1 view) In Process Unspecified. EDMS 23:07 Triage completed. cm10 23:08 Arm band placed on right wrist. Patient placed in waiting room. cm10 23:46 Inserted saline lock: 20 gauge in left antecubital area, using aseptic technique. Blood rv1 collected. Flushed with 10 mL NS. 23:46 Basic Metabolic Panel Sent. rv1 23:47 CBC with Diff Sent. rv1 23:47 Troponin HS Sent. rv1 02 00:45 Patient has correct armband on for positive identification. Family accompanied patient. lg3 00:45 No provider procedures requiring assistance completed. IV discontinued, intact, lg3 bleeding controlled, No redness/swelling at site. Pressure dressing applied. Patient maintains SpO2 saturation greater than 95% on room air. Administered Medications: 06/07 23:01 CANCELLED (Physician Discretion): [id number] mg IVP once kb 23:08 Drug: HYDROcodone-acetaminophen PO 5 mg-325 mg 1 tabs PO once Route: PO; 10 06/08 00:39 Follow up: Response: No adverse reaction; No change in condition; RASS: Alert and Calm lg3 (0) 06/07 23:13 Drug: Ondansetron PO 4 mg PO once Route: PO; 10 06/08 00:39 Follow up: Response: No adverse reaction lg3 06/07 23:15 Drug: Ketorolac IM 30 mg IM once Route: IM; Site: right gluteus; 10 06/08 00:39 Follow up: Response: No adverse reaction lg3 02 23:45 CANCELLED (Duplicate Order): Ondansetron Oral Disintegrating Tablet 4 mg PO once lg3 02 00:38 Drug: morphine IVP or IV 4 mg IVP once over 4 mins Route: IVP; Infused Over: 4 mins; lg3 Site: left antecubital; 00:39 Follow up: Response: No adverse reaction; Medication administered at discharge. lg3 Medication: 00:45 VIS not applicable for this client. lg3 Outcome: 00:21 Discharge ordered by MD. kb 00:45 Discharged to home ambulatory, with significant other, lg3 00:45 Condition: stable 00:45 Discharge instructions given to patient, Instructed on discharge instructions, follow up and referral plans. medication usage, Demonstrated understanding of instructions, follow-up care, medications, Prescriptions given X 2, 00:47 Patient left the ED. lg3 Signatures: Dispatcher [employer] EDMS Connie Rosales, PARTH CASANOVA-Sarah Bah RN RN lg3 Alyse Sotelo rv1 Sari Jalloh RN RN cm10 Yesica Chairez gm2
[2024-06-08] MEDS ORDERED: MORPHINE 4 MG/ML SYR ONE (00:32)
[2024-06-08 00:58] VITALS: BP 117/77; TEMP 97.4; O2SAT 100
--- NOTE | 2024-06-08 11:26 | EKG ---
Test Date: 2024-06-07 Test Time: 23:11:39 Special Education Administrator: ETHEL MEASUREMENT RESULTS: Intervals: Rate: 92 [place]: 122 QRSD: 84 QT: 364 QTc: 450 [place]: P: 72 WA: 122 QRS: 68 T: 66 INTERPRETIVE STATEMENTS: Normal sinus rhythm with sinus arrhythmia Normal ECG Compared to ECG 04/26/2020 15:27:01 No significant changes Electronically Signed On 06-08-24 11:24:20 FIRE EXTINGUISHER TECHNICIAN by Lukasz Elaine
--- NOTE | 2024-06-08 12:28 | RAD REPORT ---
EXAMINATION: ONE VIEW CHEST XR CLINICAL INDICATION: Female, 34 years old.,CHEST PAIN TECHNIQUE: Frontal chest projection is submitted. Examination is limited by patient positioning and t echnique. COMPARISON: 03/22/2024 FINDINGS: The lungs are well inflated and clear. No pneumothorax or sizable effusion. The heart is normal in s ize. Mediastinal contours are unremarkable. IMPRESSION: No acute intrathoracic abnormalities.
== END 2024-06-08 00:47 | disposition home or self-care (01) ==
LOC: ER 22:21
DX: R07.1 Chest pain on breathing (principal)
CPT/HCPCS: 93005; 85025; 80048; 36415; 84484; 71045; 96372; 96374; 99284; Q0162